=== PATIENT | female | born 1985 | race Caucasian/White ===

== ENCOUNTER 2018-11-30 19:23 | Emergency (ER) | payer OTHER ==
[2018-11-30 19:32] VITALS: BP 115/75; PULSE 98; RESP 18; TEMP 97.9; O2SAT 100
[2018-11-30 19:45] LABS: APPEARANCE,URINE Slightly Cloudy; BILIRUBIN,URINE NEGATIVE (NEGATIVE); COLOR,URINE Yellow; GLUCOSE, URINE (UA) NEGATIVE (NEGATIVE); KETONES,URINE NEGATIVE (NEGATIVE); LEUKOCYTE ESTERASE ,URINE 1+ (NEGATIVE); NITRATE,URINE NEGATIVE (NEGATIVE); OCCULT BLOOD,URINE TRACE INTACT (NEG-TRACE); UROBILINOGEN,URINE 0.2 (0.2-1.0 EU)
[2018-11-30 19:52] LABS: BACTERIA 4+ (< 1+); CRYSTALS NEGATIVE (0-3 AVE/HPF); RBC,URINE 0-2 (0-3AV/HPF); WBC,URINE 50-60 (0-5AV/HPF)
== END 2018-11-30 20:09 | disposition home or self-care (01) | DRG 690 ==
LOC: ED 19:23
DX: N39.0 Urinary tract infection, site not specified (principal)
CPT/HCPCS: 81001; 87077; 87088; 87186; 99282